=== PATIENT | male | born 1990 | race Caucasian/White ===

== ENCOUNTER 2016-09-24 03:54 | Emergency (ER) | payer OTHER ==
[~2016-09-24] VITALS: Ht 165.1 cm; Wt 113.6 kg
[~2016-09-24 03:54] MED LIST: CLEOCIN150 MG PO; CLINDAMYCIN HC300 MG PO; MOBIC7.5 MG PO; NOHOMEMEDS; PAROXETINE HCL20 MG PO; PEPCID20 MG PO; ST. JOSEPH ASPI81 MG PO; TYLENOL WITH C1 EACH PO; ULTRAM50 MG PO
[2016-09-24 04:30] LABS: HEMATOCRIT 41.6 % (38.0-50.0); MCH 29.2 PG (29.0-34.0); MCHC 35.1 G/DL (30.0-36.0); MCV 83.2 FL (86-99); MEAN PLAT.VOLUME 9.9 uM^3 (9.0-12.4); PLATELET COUNT 224 K/uL (156-360); RBC DIS.WIDTH-CV 11.9 % (11.8-14.6); RBC DIS.WIDTH-SD 35.9 % (39-53)
[2016-09-24 04:37] LABS: D-DIMER ELISA < 150.00 ng/mLDDU (<230)
[2016-09-24 04:44] LABS: CHLORIDE 105 mEq/L (99-109); POTASSIUM 3.5 mEq/L (3.7-5.4); SODIUM 139 mEq/L (136-147)
[2016-09-24 04:45] LABS: MAGNESIUM 2.1 mg/dL (1.3-2.7)
[2016-09-24 04:46] LABS: GLUCOSE 107 mg/dL (70-99)
[2016-09-24 04:47] LABS: ANION GAP 10 MEQ/L (2-14)
[2016-09-24 04:48] LABS: TOTAL BILIRUBIN 0.3 mg/dL (0.0-1.0)
[2016-09-24 04:50] LABS: ALKALINE PHOSPHATASE 73 IU/L (3-129); GFR ESTIMATE (CALCULATED) > 59 mL/min/
[2016-09-24 04:51] LABS: TROP-I INTERPRETATION NEGATIVE; TROPONIN-I < 0.01 ng/mL (0.0-0.30); UREA NITROGEN (BUN) 16 mg/dL (9-23)
[2016-09-24 04:53] LABS: LIPASE 62 U/L (1.0-51.0)
[2016-09-24] MEDS ORDERED: VENTOLIN HFA18 GM IH (05:14)
[2016-09-24] MEDS ORDERED: PREDNISONE50 MG PO (05:14)
[2016-09-24 05:44] VITALS: BP 114/63
== END 2016-09-24 05:46 | disposition home or self-care (01) ==
LOC: EME → EDBD 03:54 → EME 05:46
PROVIDERS: Emergency Medicine
DX: J20.9 Acute bronchitis, unspecified (principal); R11.2 Nausea with vomiting, unspecified; M25.519 Pain in unspecified shoulder; F17.200 Nicotine dependence, unspecified, uncomplicated; Z71.6 Tobacco abuse counseling; Z79.82 Long term (current) use of aspirin; Z88.0 Allergy status to penicillin
CPT/HCPCS: 71020; 80053; 83690; 83735; 84484; 85027; 85379; 93005; 94640; 99281; 99284; J7512

== ENCOUNTER 2016-10-21 18:59 | Emergency (ER) | payer OTHER ==
[~2016-10-21] VITALS: Ht 167.6 cm; Wt 110.6 kg
[~2016-10-21 18:59] MED LIST changes: +PREDNISONE50 MG PO; +VENTOLIN HFA18 GM IH
[2016-10-21 19:22] LABS: HEMATOCRIT 42.2 % (38.0-50.0); MCH 29.5 PG (29.0-34.0); MCHC 35.1 G/DL (30.0-36.0); MCV 84.1 FL (86-99); PLATELET COUNT 226 K/uL (156-360); RBC DIS.WIDTH-CV 11.7 % (11.8-14.6); RBC DIS.WIDTH-SD 35.5 % (39-53); RED BLOOD COUNT 5.02 M/uL (4.00-5.50); WHITE BLOOD COUNT 9.8 K/uL (4.1-10.2)
[2016-10-21 19:33] LABS: CHLORIDE 107 mEq/L (99-109); SODIUM 142 mEq/L (136-147)
[2016-10-21 19:34] LABS: GLUCOSE 96 mg/dL (70-99)
[2016-10-21 19:36] LABS: ANION GAP 12 MEQ/L (2-14)
[2016-10-21 19:38] LABS: GFR ESTIMATE (CALCULATED) > 59 mL/min/
[2016-10-21 19:39] LABS: UREA NITROGEN (BUN) 13 mg/dL (9-23)
[2016-10-21 19:45] LABS: TROP-I INTERPRETATION NEGATIVE; TROPONIN-I < 0.01 ng/mL (0.0-0.30)
[2016-10-21] MEDS ORDERED: CLINDAMYCIN HC150 MG PO (20:21)
[2016-10-21] MEDS ORDERED: PERIDEX473 ML MM (20:21)
[2016-10-21 20:49] VITALS: BP 124/57
== END 2016-10-21 20:50 | disposition home or self-care (01) ==
LOC: EME 18:59
DX: R07.89 Other chest pain (principal); R06.02 Shortness of breath; R50.9 Fever, unspecified; F41.9 Anxiety disorder, unspecified; Z87.891 Personal history of nicotine dependence; Z88.0 Allergy status to penicillin
CPT/HCPCS: 71020; 80048; 84484; 85027; 87040; 93005; 99281; 99284

== ENCOUNTER 2016-11-05 18:01 | Observation (INO) | payer OTHER ==
[~2016-11-05] VITALS: Ht 167.6 cm; Wt 108.2 kg
[~2016-11-05 18:01] MED LIST changes: +CLINDAMYCIN HC150 MG PO; +PERIDEX473 ML MM
[2016-11-05 19:21] LABS: EOSINOPHIL (%) 2.9 % (0-5); EOSINOPHIL COUNT 0.3 K/uL (0-0.3); HEMATOCRIT 40.5 % (38.0-50.0); IMMATURE GRANULOCYTE (%) 0.2 % (0.0-0.7); INSTRUMENT ABS NEUTROPHIL CT 5.2 K/uL; LYMPHOCYTE COUNT 2.8 K/uL (1.0-2.8); MCH 29.1 PG (29.0-34.0); MCHC 35.1 G/DL (30.0-36.0); MEAN PLAT.VOLUME 9.8 uM^3 (9.0-12.4); MONOCYTE (%) 5.8 % (3-12); MONOCYTE COUNT 0.5 K/uL (0-0.8); NEUTROPHIL (%) 59.4 % (45-76); NEUTROPHIL COUNT 5.2 K/uL (1.8-6.4); PLATELET COUNT 272 K/uL (156-360); RBC DIS.WIDTH-CV 11.5 % (11.8-14.6); RBC DIS.WIDTH-SD 34.5 % (39-53); RED BLOOD COUNT 4.88 M/uL (4.00-5.50); WHITE BLOOD COUNT 8.8 K/uL (4.1-10.2)
[2016-11-05 19:27] LABS: PROTHROMBIN TIME 11.4 SEC (10.2-12.9)
[2016-11-05 19:29] LABS: D-DIMER ELISA < 150.00 ng/mLDDU (<230); PTT 29.4 SEC (25-37)
[2016-11-05 19:30] LABS: CHLORIDE 106 mEq/L (99-109); POTASSIUM 3.9 mEq/L (3.7-5.4); SODIUM 142 mEq/L (136-147)
[2016-11-05 19:33] LABS: ANION GAP 10 MEQ/L (2-14)
[2016-11-05 19:36] LABS: GFR ESTIMATE (CALCULATED) > 59 mL/min/
[2016-11-05 19:37] LABS: UREA NITROGEN (BUN) 16 mg/dL (9-23)
[2016-11-05 19:44] LABS: TROP-I INTERPRETATION NEGATIVE; TROPONIN-I < 0.01 ng/mL (0.0-0.30)
[2016-11-05 19:53] LABS: GLUCOSE 109 mg/dL (70-99)
[2016-11-05] MEDS ORDERED: ADVIL,NUPRIN,M200 MG PO (22:06)
[2016-11-05] MEDS ORDERED: CYANOCOBALAM1000 MCG PO (22:06)
[2016-11-06 00:05] VITALS: BP 126/60
[2016-11-06 04:53] VITALS: BP 136/66
[2016-11-06 07:33] VITALS: BP 119/62
[2016-11-06 07:38] VITALS: BP 121/60
[2016-11-06 07:42] VITALS: BP 121/65
[2016-11-06 08:46] LABS: TROP-I INTERPRETATION NEGATIVE; TROPONIN-I < 0.01 ng/mL (0.0-0.30)
[2016-11-06 11:28] VITALS: BP 127/60
== END 2016-11-06 17:28 | disposition home or self-care (01) ==
LOC: EME 18:01 → EDOF 21:55 → ENRESERV 21:59 → 5WEST 11-06 00:01
PROVIDERS: Emergency Medicine; Physician Assistant Medical
DX: R07.89 Other chest pain (principal); R55 Syncope and collapse; R94.31 Abnormal electrocardiogram [ECG] [EKG]; Z91.14 Patient's other noncompliance with medication regimen; Z91.19 Patient's noncompliance with other medical treatment and regimen; R51 Headache; I48.0 Paroxysmal atrial fibrillation; F41.0 Panic disorder [episodic paroxysmal anxiety]; J45.909 Unspecified asthma, uncomplicated; J32.4 Chronic pansinusitis; K21.9 Gastro-esophageal reflux disease without esophagitis; G89.29 Other chronic pain; F32.9 Major depressive disorder, single episode, unspecified; M54.5 Low back pain; Z87.891 Personal history of nicotine dependence; Z79.82 Long term (current) use of aspirin; Z88.0 Allergy status to penicillin; Z82.3 Family history of stroke
CPT/HCPCS: 70450; 70544; 71010; 80048; 81003; 84484; 85025; 85379; 85610; 85730; 93005; 99202; 99281; 99285; G0378; J1200; J1885; J2930; J7030